=== PATIENT | male | born 1985 | race Caucasian/White ===

== ENCOUNTER 2019-11-25 12:34 | Emergency (ER) | payer OTHER ==
[~2019-11-25] VITALS: Ht 177.8 cm; Wt 90.9 kg
[2019-11-25 12:51] VITALS: Ht 177.8 cm; Wt 90.9 kg
[2019-11-25 13:42] LABS: BASOPHILS 0.1 % (0-2); EOSINOPHILS 0.7 % (0-7); HEMATOCRIT 42.4 % (42.0-54.0); HEMOGLOBIN 14.7 g/dL (13.5-17.5); IMMATURE GRANULOCYTES 0.5 % (0-5); MCH 31.5 pg (26.0-34.0); MCHC 34.7 g/dL (31.0-37.0); MCV 90.8 fL (80.0-100.0); MEAN PLATELET VOLUME 9.6 fL (7.4-10.4); MONOCYTES 8.3 % (2-11); NEUTROPHILS 79.4 % (40-80); PLATELET COUNT 348 10x3/uL (130-400); RBC 4.67 10x6/uL (4.20-6.10); RDW 12.4 % (11.5-14.5); WBC 13.6 10x3/uL (4.8-10.8)
[2019-11-25 13:47] LABS: CALC OSMOLALITY 270 mosm/kg (275-300); CARBON DIOXIDE 25.3 mmol/L (21.0-32.0); CHLORIDE - SERUM 104 mmol/L (98-107); CREATININE - SERUM 1.1 mg/dL (0.6-1.3); GLUCOSE 108 mg/dL (74-106); SODIUM 136 mmol/L (136-145); UREA NITROGEN 8 mg/dL (7-18); eGFR NON AFRICAN AMERICAN 82 mL/min (90-120)
[2019-11-25 13:52] LABS: APTT 37.8 SECONDS (22.8-39.4); INR 1.2 (0.85-1.17); PROTIME 15.1 SECONDS (11.6-15.0)
[2019-11-25 13:53] LABS: D-DIMER-QUANTITATIVE 2.03 ug/mLFEU (0.20-0.54)
[2019-11-25 13:59] LABS: ALBUMIN 2.9 g/dL (3.4-5.0); ALKALINE PHOSPHATASE 74 U/L (30-120); ALT (SGPT) 20 U/L (10-68); BILIRUBIN - TOTAL 0.52 mg/dL (0.2-1.3); PROTEIN - SERUM 7.8 g/dL (6.4-8.2); URIC ACID 4.6 mg/dL (2.6-7.2)
[2019-11-25 14:00] LABS: C-REACTIVE PROTEIN 30.7 mg/dL (0.0-0.9)
[2019-11-25 14:46] LABS: ERYTHROCYTE SEDIMENTATION RATE 102 mm/hr (0-15)
[2019-11-25] MEDS ORDERED: TYLENOL W/CODEI1 TAB PO (15:46)
[2019-11-25] MEDS ORDERED: PREDNISONE20 MG PO (15:46)
[2019-11-25 16:32] VITALS: BP 142/87
== END 2019-11-25 16:33 | disposition home or self-care (01) ==
LOC: D.ER 12:34
PROVIDERS: Family Medicine
DX: M79.641 Pain in right hand (principal); M79.642 Pain in left hand; R79.82 Elevated C-reactive protein (CRP); R79.1 Abnormal coagulation profile; R70.0 Elevated erythrocyte sedimentation rate; D72.829 Elevated white blood cell count, unspecified

== ENCOUNTER 2019-11-30 04:55 | Emergency (ER) | payer OTHER ==
[~2019-11-30] VITALS: Ht 177.8 cm; Wt 104.5 kg
[~2019-11-30 04:55] MED LIST: PREDNISONE20 MG PO; TYLENOL W/CODEI1 TAB PO
[2019-11-30 04:59] VITALS: Ht 177.8 cm; Wt 104.5 kg
[2019-11-30 05:47] LABS: BASOPHILS 0.1 % (0-2); EOSINOPHILS 0.7 % (0-7); HEMATOCRIT 41.8 % (42.0-54.0); IMMATURE GRANULOCYTES 2.4 % (0-5); LYMPHOCYTES 13.3 % (15-50); MCH 30.8 pg (26.0-34.0); MCHC 33.5 g/dL (31.0-37.0); MCV 91.9 fL (80.0-100.0); MONOCYTES 11.2 % (2-11); NEUTROPHILS 72.3 % (40-80); PLATELET COUNT 457 10x3/uL (130-400); RBC 4.55 10x6/uL (4.20-6.10); RDW 12.5 % (11.5-14.5); WBC 20.3 10x3/uL (4.8-10.8)
[2019-11-30 05:54] LABS: APTT 28.8 SECONDS (22.8-39.4); CALC OSMOLALITY 278 mosm/kg (275-300); CALCIUM 8.7 mg/dL (8.5-10.1); CARBON DIOXIDE 27.2 mmol/L (21.0-32.0); CHLORIDE - SERUM 101 mmol/L (98-107); GLUCOSE 115 mg/dL (74-106); INR 1.08 (0.85-1.17); POTASSIUM - SERUM 3.8 mmol/L (3.5-5.1); PROTIME 13.9 SECONDS (11.6-15.0); SODIUM 138 mmol/L (136-145); UREA NITROGEN 18 mg/dL (7-18); eGFR NON AFRICAN AMERICAN > 90 mL/min (90-120)
[2019-11-30 05:55] LABS: D-DIMER-QUANTITATIVE 1.77 ug/mLFEU (0.20-0.54)
[2019-11-30 06:02] LABS: ALBUMIN 2.7 g/dL (3.4-5.0); ALKALINE PHOSPHATASE 70 U/L (30-120); ALT (SGPT) 45 U/L (10-68); C-REACTIVE PROTEIN 3.2 mg/dL (0.0-0.9); MAGNESIUM - SERUM 1.8 mg/dL (1.8-2.4); PROTEIN - SERUM 7.4 g/dL (6.4-8.2)
[2019-11-30] MEDS ORDERED: HYDROCODON-ACE1 EAC7 PO (06:38)
[2019-11-30 06:41] LABS: BILIRUBIN - TOTAL 0.09 mg/dL (0.2-1.3)
[2019-11-30 06:47] VITALS: BP 167/89
[2019-11-30 07:18] LABS: UDS - AMPHET NEGATIVE QUAL (NEGATIVE); UDS - BARB NEGATIVE QUAL (NEGATIVE); UDS - BENZO NEGATIVE QUAL (NEGATIVE); UDS - COCAINE NEGATIVE QUAL (NEGATIVE); UDS - OPIATE NEGATIVE QUAL (NEGATIVE); UDS - PCP NEGATIVE QUAL (NEGATIVE); UDS - THC NEGATIVE QUAL (NEGATIVE)
[2019-11-30 07:24] LABS: BILIRUBIN NEGATIVE (NEGATIVE); KETONE NEGATIVE (NEGATIVE); NITRITE NEGATIVE (NEGATIVE); SQUAMOUS EPITHELIAL 1 HPF (0-4); UROBILINOGEN NORMAL mg/dL (< 2)
[2019-11-30 10:44] LABS: ERYTHROCYTE SEDIMENTATION RATE 51 mm/hr (0-15)
== END 2019-11-30 06:48 | disposition home or self-care (01) ==
LOC: D.ER 04:55
PROVIDERS: Family Medicine
DX: M79.601 Pain in right arm (principal); R51.9 Headache, unspecified